=== PATIENT | male | born 1945 | race Caucasian/White ===

== ENCOUNTER 2017-12-12 08:29 | Day surgery (SDC) | payer OTHER ==
[2017-12-12] MEDS ORDERED: NS 1,000 ML IV ONE (08:32)
[2017-12-12] MEDS ORDERED: ASPIRIN EC 325 MG TAB PO ONE ×2 (08:32→08:49)
[2017-12-12] MEDS ORDERED: DIAZEPAM 5 MG TAB PO ONE (08:32)
[2017-12-12] MEDS ORDERED: FAMOTIDINE 20 MG TAB PO ONE (08:32)
[2017-12-12] MEDS ORDERED: diphenhydrAMINE 25 MG CAP PO ONE ×2 (08:32→08:49)
[2017-12-12] MEDS ORDERED: DIAZEPAM 5 MG TAB ONE (08:49)
[2017-12-12] MEDS ORDERED: FAMOTIDINE 20 MG TAB ONE (08:49)
--- NOTE | 2017-12-12 08:49 | CPEKG ---
Heart Rate: 75 RR Interval: 800 P-R Interval: 184 QRSD Interval: 118 QT Interval: 400 QTC Interval: 447 P [place]: 62 QRS [place]: -53 T Wave [place]: 46 EKG Severity - ABNORMAL ECG - EKG Impression: SINUS RHYTHM EKG Impression: left anterior fasicular block EKG Impression: PROBABLE LEFT VENTRICULAR HYPERTROPHY Electronically Signed By: Jet Mclaughlin 12-Dec-2017 12:41:43
[2017-12-12] MEDS ORDERED: LIDOCAINE 1% 300 MG/30 ML SDV ONE (08:52)
[2017-12-12] MEDS ORDERED: fentaNYL 100 MCG/2 ML INJ ONE (08:53)
[2017-12-12] MEDS ORDERED: MIDAZOLAM 2 MG/2 ML VIAL ONE (08:53)
[2017-12-12] MEDS ORDERED: IOPAMIDOL (ISOVUE-370) 150 ML BTL IV ONE (08:53)
--- NOTE | 2017-12-12 09:07 | PDPROPOC ---
Sedation Plan of Care Sedation Plan of Care: vital signs stable, mental status noted, patient educated of risks, benefits, alternatives, patient can tolerate sedation ASA Classification: ASA 2 Planned drugs: fentanyl, midazolam Mallampati Score: Class 2 Mallampati Reference Image: Patient passed 3-3-2 rule?: Yes
--- NOTE | 2017-12-12 09:07 | PDGENHP ---
History and Physical History and Physical: Patient is a 72 y/o male with history of CAD (as per MSCT), COPD, LEOLA, HTN, and DM, who presents as an outpatient for scheduled left heart catheterization. Ongoing complaints of left sided chest pressure. Patient was seen in the outpatient clinic in early November 2017. Stress testing with moderate sized reversible defect as well as reduction in systolic function noted. No changes to physical exam have been noted. Risks and benefits of the procedure ([facility]) were discussed with patient today Labs are pending
[2017-12-12 09:16] LABS: PLATELET COUNT 281 10^3/uL (150-400)
[2017-12-12 09:18] LABS: INR 0.92 (0.83-1.16); PROTIME(PATIENT) 12.6 SEC (12.0-15.0)
[2017-12-12] MEDS ORDERED: BIVALIRUDIN 250 MG/5 ML VIAL IV ONE (10:15)
[2017-12-12] MEDS ORDERED: ADENOSINE 90 MG/30 ML VIAL IV ONE (10:17)
--- NOTE | 2017-12-12 10:24 | PDDXCAT ---
Diagnostic Cath Note - . Date: 12/12/17 Internal Control Analyst: Estela Indication: CCC Class III and IV angina on medical treatment High-risk criteria on non-invasive testing: stress-induced moderate-size multiple perfusion defects - Procedure Access: right groin Procedure: left heart catheterization, coronary angiography, left ventriculogram - Materials Left Heart Cath size: 6F Left Heart Cath materials: standard multipack (JL4, JR4, pigtail) - Findings-Left Heart Catheterization LM: Medium diameter vessel without luminal irregularities noted. Bifurcation into the LAD and LCX LAD: Medium diamter vessel with diffuse luminal irregularities noted. There is a principal D1 (equal in magnitude to the take off from the LAD). No stenosis greater than 30% was noted. Distal LAD is wrap around at the apex. LCX: Medium diameter vessel with early take off OM1 (principal). Mid LCX with luminal irregularities of 30-40% noted. RCA: Medium diameter vessel with 30% proximal lesion and some haziness to the mid vessel. Calcification to the RCA was noted. Distally, there is haziness to the PDA (this likely the territory of the reversible perfusion defect noted on MPI). EDP: 10 mm Hg LVEF: 60% Wall motion: Grossly normal Complications: none Estimated blood loss: <50ml Assessment: Given the hazy region to the mid RCA and the defect noted on MPI, request for Dr. Sierra Emery to perform FFR to the RCA. Plan: FFR to RCA Intervention: pending
[2017-12-12] MEDS ORDERED: OXYCODONE/APAP 5/325 TAB PO PRN (11:34)
[2017-12-12] MEDS ORDERED: NITROGLYCERIN 0.4 MG BTL SL PRN (11:34)
[2017-12-12] MEDS ORDERED: ATROPINE SULFATE 1 MG/10 ML SYR IVP PRN (11:34)
[2017-12-12] MEDS ORDERED: HYDROCODONE/APAP 5/325 TAB PO PRN (11:34)
[2017-12-12] MEDS ORDERED: ONDANSETRON 4 MG/2 ML VIAL IVP PRN (11:34)
--- NOTE | 2017-12-12 11:39 | CPIP ---
[f rep st] INVASIVE CARDIAC PROCEDURE DATE OF PROCEDURE: 12/12/2017 PROCEDURES PERFORMED: 1. Coronary angiography. 2. Fractional flow reserve of the right coronary artery. INDICATIONS: 1. Class 3 angina. 2. Abnormal stress test with inferior ischemia. 3. Intermediate grade lesion involving the mid right coronary artery that appeared to be not flow li miting. ACCESS AND CORONARY ANGIOGRAPHY: Access and coronary angiography were performed by Dr. Jim Palmer. FFR OF THE RIGHT CORONARY ARTERY: A 6-English JR4 was advanced to the right coronary artery and image s obtained. The right coronary artery was dominant. The right coronary artery was diffusely disease d in the proximal and mid segments. The greatest stenosis appeared to be in the midvessel and approa ched approximately 50% in severity. FFR wire was placed in the distal vessel and position verified b y angiography. FFR was obtained after IV adenosine infusion. With IV adenosine infusion, the patien t developed intermittent heart block. His FFR was 0.88, indicating no flow limitation. The FFR wire was then withdrawn back into the proximal right coronary artery. The FFR returned to 1, indicating no drift. COMPLICATIONS: None. CONCLUSIONS: No flow-limiting disease in the proximal and mid right coronary artery. /[id number]/MODL
== END 2017-12-12 13:14 | disposition home or self-care (01) ==
LOC: FCATH 08:29
PROVIDERS: ATTEND Internal Medicine Cardiovascular Disease
DX: I25.118 Atherosclerotic heart disease of native coronary artery with other forms of angina pectoris (principal); I10 Essential (primary) hypertension; J44.9 Chronic obstructive pulmonary disease, unspecified; E78.5 Hyperlipidemia, unspecified; E11.9 Type 2 diabetes mellitus without complications; Z79.4 Long term (current) use of insulin; I25.10 Atherosclerotic heart disease of native coronary artery without angina pectoris
CPT/HCPCS: 93005; 93458; 93571; C1769; C1887; C1760; J0153; J0583; J1644; J2250; J3010; Q9967

== ENCOUNTER 2018-01-23 10:49 | Emergency (ER) | payer OTHER ==
[2018-01-23] MEDS ORDERED: NS 1,000 ML IV ONE (11:10)
[2018-01-23] MEDS ORDERED: ONDANSETRON 4 MG/2 ML VIAL IVP ONE (11:11)
--- NOTE | 2018-01-23 11:21 | EDPHY ---
H & P Time Seen by Provider: 01/23/18 10:54 HPI/ROS: HPI Right lower back pain. 72-year-old male by private vehicle with his . This patient has a history of left-sided lower back pain. He was seen by Dr. Hicks at [facility] about 3 weeks ago and had a steroid bupivacaine injection left-sided paraspinal. No complications with this. He reports that 4 nights ago he started developing right lower flank pain. Described as sharp and aching. Nonradiating. He describes this is the same pain he has had in the past associated with his kidney stones. He reports that over the last 4 days it has been on and off in nature. He denies any gross hematuria. He reports that last night it came back and was worse but he was able to go to sleep and then at 10:00 a.m. This morning it again came back and was more intense than it has been. He had associated nausea and 1 episode of nonbilious, nonbloody vomiting. He has not had a fever. Denies any history of trauma. No other complaints. ROS: Constitutional: No fever, no chills. No weakness. Eyes: No discharge. No changes in vision. ENT: No sore throat. No nasal congestion or rhinorrhea. Respiratory: No cough. No shortness of breath. Cardiac: No chest pain, no palpitations. Gastrointestinal: No abdominal pain, as above, no diarrhea. Genitourinary: No hematuria. No dysuria or increased frequency with urination. No testicular pain. Musculoskeletal: As above. No neck pain. No myalgias or arthralgias. Skin: No rashes. Neurological: No headache. No focal weakness or altered sensation. Past medical history: Kidney stones, type 1 diabetes, hypertension, degenerative disc disease of lumbar spine. Social history: Nonsmoker. Here with his . No alcohol. Physical Exam: General Appearance: Alert, no distress. This patient is responding to questions appropriately and in full sentences. This patient appears well- hydrated and well-nourished. Eyes: Pupils equal and round no pallor or injection. No lid edema, erythema or injection. Back exam: He does have right-sided lower CVA tenderness on palpation which is mild. No associated soft tissue edema, erythema or warmth. No left-sided CVA tenderness on palpation. No midline cervical, thoracic, lumbar tenderness on palpation. He has a negative same side and cross-eyed straight leg raise test. He is neurologically intact in all myotomes in dermatomes of the bilateral lower extremities. Gastrointestinal: Abdomen is soft and nontender, no masses, bowel sounds normal. No focal tenderness at McBurney's point. No Guthrie sign. Neurological: Motor sensory function is grossly intact. Cranial nerves are normal. Gait is normal. Skin: Warm and dry, no rashes. Musculoskeletal: Neck is supple and nontender. Extremities are symmetrical. All joints range without pain or impingement. Psychiatric: No agitation. No depression. Database: EKG: Imaging: CT abdomen and pelvis without contrast: Significant for a right-sided 1.2 cm stone at the L3 level, proximal ureter with moderate hydronephrosis. Please see radiologist's report for further details. Study discussed with staff radiologist Dr. Curt Alvarado. Procedures: Emergency department course: IV placed. Vital signs reviewed and are normal. He will be given 1 L of IV normal saline over the next hour for hydration. He received 4 mg of IV Zofran for nausea. He consents for CT imaging to evaluate for kidney stones. Upon verification of a normal creatinine he will receive 30 mg of IV Toradol for pain. 12:30 p.m., patient re-evaluated. He has some discomfort but he is not in distress. He was given 30 mg of IV Toradol and 0.4 mg of oral Flomax. I discussed the results of his CT imaging with him. Urology was paged. At this time the patient does not want to be admitted to the hospital for pain control and or urology consultation. 12:50 p.m., spoke with on-call urologist Dr. Job Rojo. He will see this patient in his office tomorrow morning. The patient will be prescribed Vicodin for pain control as well as Flomax and Zofran for nausea. He feels comfortable going home at this time. He understands his follow-up. Return to emergency department precautions have been discussed with him. All of his questions were answered. He was discharged from the emergency department in good condition with his . Differential Diagnosis: The differential diagnosis on this patient includes but is not limited to sacroiliac strain, ureterolithiasis. Pyelonephritis, sciatica, epidural compression syndrome, epidural abscess, testicular torsion, colitis unlikely. This represents a partial list of diagnoses considered. These considerations are based on history, physical exam, past history, reassessment and diagnostic testing. Smoking Status: Never smoked Constitutional: Initial Vital Signs Temperature (C) 36.6 C 01/23/18 10:57 Heart Rate 74 01/23/18 10:57 Respiratory Rate 20 01/23/18 10:57 Blood Pressure 132/68 H 01/23/18 10:57 O2 Sat (%) 97 01/23/18 10:57 O2 Delivery Mode Room Air Allergies/Adverse Reactions: Penicillins Allergy (Verified 01/01/12 13:08) Rash Home Medications: Medication Instructions Recorded Aspirin EC [Aspirin EC 81 mg (*)] 81 mg PO HS 12/10/17 Famotidine [Pepcid 20 MG (*)] 10 mg PO HS 12/10/17 Herbals/Supplements -Info Only 1 ea PO DAILY 12/10/17 Indomethacin [Indocin 25 mg (*)] 50 mg PO Q6HRS PRN 12/10/17 Insulin Glargine [Lantus 100 55 units SQ HS 12/10/17 UNITS/ML (*)] Lisinopril [Zestril 20 mg (*)] 20 mg PO DAILY 12/10/17 Loratadine [Claritin 10 mg] 10 mg PO DAILY PRN 12/10/17 Multivitamins [Multivitamin (*)] 1 each PO DAILY 12/10/17 Umeclidinium Brm/Vilanterol Tr 1 each IH DAILY 12/10/17 [Anoro Ellipta 62.5-25 Mcg INH] amLODIPine BESYLATE [Norvasc 5 mg 5 mg PO HS 12/10/17 (*)] metFORMIN HCL [Glucophage 500 mg 1,000 mg PO BIDMEAL 12/10/17 (*)] Hydrocodone/APAP 5/325 [[place] 1 - 2 tab PO Q4-6PRN PRN #14 tab 01/23/18 5/325 (*)] Ondansetron Odt [Zofran Odt 4 mg 4 mg PO Q4PRN PRN #10 tab 01/23/18 (*)] Tamsulosin HCl [Flomax 0.4 MG (*)] 0.4 mg PO DAILY #4 cap 01/23/18 Medical Decision Making - Diagnostics Imaging Results: Imaging Impressions Abdomen/Pelvis CT 01/23/18 11:11 Impression: 1. 1.2-cm proximal right ureteral stone with moderate obstructive uropathy with perinephric and perienteric stranding, suggesting forniceal rupture. 2. Bilateral nephrolithiasis. 3. Diverticulosis without evidence of diverticulitis. 4. Benign-appearing geographic lucency in the right iliac bone. If the patient has pain in this region, consider MR pelvis with contrast or bone scan with SPECT. 5. No significant change in bilateral pleural plaques. 6. Additional findings as above. Findings discussed with Dr. Jenny Souza on January 23, 2018 at 1217 hours. Attention: This CT examination is specifically designed to evaluate patients who are clinically suspected of having acute obstructive uropathy. This examination does not use radiographic contrast and provides only a limited evaluation of the abdomen, pelvis and retroperitoneum. If there is further clinical suspicion for pathological conditions other than obstructive uropathy, a complete CT evaluation of the abdomen and pelvis utilizing intravenous and enteric contrast should be considered. - Data Points Laboratory Results: 01/23/18 01/23/18 12:00 11:26 POC Hgb 15.3 gm/dL gm/dL (13.7-17.5) POC Hct 45 % % (40-51) POC Sodium 142 mEq/L mEq/L (135-145) POC Potassium 3.8 mEq/L mEq/L (3.3-5.0) POC Chloride 106 mEq/L mEq/L (97-110) POC BUN 22 mg/dL mg/dL (7-23) POC Creatinine 1.1 mg/dL mg/dL (0.7-1.3) POC Glucose 192 mg/dL H mg/dL (70-100) Urine RBC 50-182 /hpf H /hpf (0-3) Urine WBC 15-25 /hpf H /hpf (0-3) Ur Epithelial Cells TRACE /lpf /lpf (NONE-1+) Urine Bacteria TRACE /hpf H /hpf (NONE SEEN) Hyaline Casts 1-5 /lpf /lpf (0-1) Urine Mucus TRACE /lpf /lpf (NONE-1+) Medications Given: Discontinued Medications Sodium Chloride (Ns) 1,000 mls @ 0 mls/hr IV EDNOW ONE; Wide Open PRN Reason: Protocol Stop: 01/23/18 11:11 Last Admin: 01/23/18 11:32 Dose: 1,000 mls Ketorolac Tromethamine (Toradol) 30 mg IVP EDNOW ONE Stop: 01/23/18 12:39 Last Admin: 01/23/18 12:53 Dose: 30 mg Ondansetron HCl (Zofran) 4 mg IVP EDNOW ONE Stop: 01/23/18 11:12 Last Admin: 01/23/18 11:30 Dose: Not Given Tamsulosin HCl (Flomax) 0.4 mg PO EDNOW ONE Stop: 01/23/18 12:40 Last Admin: 01/23/18 12:53 Dose: 0.4 mg Point of Care Test Results: Chemistry 01/23/18 11:26 POC Sodium 142 mEq/L mEq/L (135-145) POC Potassium 3.8 mEq/L mEq/L (3.3-5.0) POC Chloride 106 mEq/L mEq/L (97-110) POC BUN 22 mg/dL mg/dL (7-23) POC Creatinine 1.1 mg/dL mg/dL (0.7-1.3) POC Glucose 192 mg/dL H mg/dL (70-100) ISTAT H&H 01/23/18 11:26 POC Hgb 15.3 gm/dL gm/dL (13.7-17.5) POC Hct 45 % % (40-51) Urine Dip Collection Date 01/23/18 Collection Time 11:25 Specific [place] (1.002-1.030) 1.020 PH (5.0-7.5) 5.5 Leukocytes (Negative) Trace Nitrites (Negative) Negative Protein (Negative) 2+ Glucose (Negative) Negative Ketones (Negative) Negative Urobilnogen (0.2-1.0 EU) 0.2 Bilirubin (Negative) Negative Blood (Negative) 3+ Departure - Departure Disposition: Home, Routine, Self-Care Clinical Impression: Right flank pain, Kidney stone on right side Condition: Good Instructions: Kidney Stones (ED) Additional Instructions: Read and follow provided instructions. I spoke with Dr. Job Rojo of the Urology service about you. He will see you in his office tomorrow on follow-up for further management of your kidney stone. He will be in his [place] office. The number is [phone]. Call this afternoon for appointment time. Take medication as prescribed for pain. Narcotic pain medication: Take 1-2 every 4-6 hours as needed for pain. Do not drive on this medication. Return to the emergency department for worsening symptoms, worsening pain or uncontrolled pain despite medication, fever, vomiting or other serious concerns. Referrals: Job Rojo MD [Medical Doctor] - As per Instructions Prescriptions: Hydrocodone/APAP 5/325 [[place] 5/325 (*)] 1 - 2 tab PO Q4-6PRN PRN #14 tab PRN Reason: Pain, Moderate Ondansetron Odt [Zofran Odt 4 mg (*)] 4 mg PO Q4PRN PRN #10 tab PRN Reason: For Nausea & Vomiting Tamsulosin HCl [Flomax 0.4 MG (*)] 0.4 mg PO DAILY #4 cap
[2018-01-23] MEDS ORDERED: KETOROLAC 30 MG/1 ML SDV IVP ONE (12:38)
[2018-01-23] MEDS ORDERED: TAMSULOSIN HCL 0.4 MG CAP PO ONE (12:39)
[2018-01-23 13:19] VITALS: BP 127/62
== END 2018-01-23 13:17 | disposition home or self-care (01) ==
LOC: CED 10:49
DX: N20.0 Calculus of kidney (principal); E10.9 Type 1 diabetes mellitus without complications; I10 Essential (primary) hypertension; E86.9 Volume depletion, unspecified; Z79.82 Long term (current) use of aspirin
CPT/HCPCS: 74176; 96361; 96374; 99285; J1885; J2405; 82435-PO; 82565-PO; 82947-PO; 84132-PO; 84295-PO; 84520-PO; 85014-PO

== ENCOUNTER → 2018-05-31 | Outpatient (CLI) | payer OTHER | LOC: CIMAGING 14:16 | PROVIDERS: ATTEND Family Medicine | DX: J98.4 Other disorders of lung (principal); J44.9 Chronic obstructive pulmonary disease, unspecified; I25.10 Atherosclerotic heart disease of native coronary artery without angina pectoris; Z77.090 Contact with and (suspected) exposure to asbestos; Z87.891 Personal history of nicotine dependence | CPT/HCPCS: 71250-PO ==